=== PATIENT | female | born 1960 | race American Indian/Alaskan Native ===

== ENCOUNTER 2017-01-26 15:16 | Observation (INO) | payer OTHER ==
--- NOTE | 2017-01-26 15:58 | ED PDOC ---
Arrival/HPI - General Chief Complaint: Chest Pain Time Seen by Provider: 01/26/17 15:22 Historian: Patient - History of Present Illness Narrative History of Present Illness (Text): 01/26/17 15:53 A 56 year old female presents to the emergency department complaining of intermittent midsternal chest pain for 1 week. Patient unable to describe her pain and denies any radiation. Patient notes mild facial pain but denies any fever, chills, nausea, vomiting, abdominal pain, urinary symptoms, shortness of breath, cough or any other complaints. Patient reports she had an echo and stress test done " awhile ago" which showed normal results. PMD: Dr. Peña 01/26/17 17:29 Time/Duration: 1 week Symptom Course: Intermittent Quality: Unable to Describe Context: Home Past Medical History - Provider Review Nursing Documentation Reviewed: Yes - Infectious Disease Hx of Infectious Diseases: None - Tetanus Immunization Tetanus Immunization: Unknown - Past Medical History Past Medical History: Non-Contributing - Cardiac Hx Cardiac Disorders: Yes Hx Congestive Heart Failure: Yes Hx Hypertension: Yes - Pulmonary Hx Respiratory Disorders: No - Neurological Hx Neurological Disorder: No - HEENT Hx HEENT Disorder: No - Renal Hx Renal Disorder: No - Endocrine/Metabolic Hx Endocrine Disorders: Yes Hx Diabetes Mellitus Type 2: Yes - Hematological/Oncological Hx Blood Disorders: No - Integumentary Hx Dermatological Disorder: No - Musculoskeletal/Rheumatological Hx Musculoskeletal Disorders: Yes Hx Arthritis: Yes - Gastrointestinal Hx Gastrointestinal Disorders: No - Genitourinary/Gynecological Hx Genitourinary Disorders: No - Psychiatric Hx Psychophysiologic Disorder: No Hx Substance Use: No - Anesthesia Hx Anesthesia: No Hx Anesthesia Reactions: No Hx Malignant Hyperthermia: No Family/Social History - Physician Review Nursing Documentation Reviewed: Yes Family/Social History: No Known Family HX Smoking Status: Never Smoked Hx Alcohol Use: No Hx Substance Use: No Allergies/Home Meds Allergies/Adverse Reactions: Allergies amoxicillin Adverse Reaction (Verified 01/26/17 18:33) SWELLING Periorbital edema penicillin G Adverse Reaction (Verified 01/26/17 18:33) ANAPHYLAXIS Home Medications: Home Meds Medication Instructions Recorded Confirmed Aspirin [Ecotrin] 81 mg PO DAILY 05/20/16 01/26/17 Furosemide [Lasix] 40 mg PO BID 05/20/16 01/26/17 Losartan [Cozaar] 100 mg PO DAILY 05/20/16 01/26/17 Spironolactone [Aldactone] 25 mg PO DAILY 05/20/16 01/26/17 metFORMIN [glucOPHAGE] 500 mg PO BID 05/20/16 01/26/17 Review of Systems - Physician Review All systems were reviewed & negative as marked: Yes - Review of Systems Constitutional: absent: Fevers, Night Sweats Respiratory: absent: SOB, Cough Cardiovascular: Chest Pain Gastrointestinal: absent: Abdominal Pain, Nausea, Vomiting Genitourinary Female: absent: Dysuria, Frequency, Hematuria, Urine Output Changes Musculoskeletal: Other (facial pain) Physical Exam Vital Signs Reviewed: Yes Vital Signs Temp Pulse Resp BP Pulse Ox 01/26/17 18:31 62 130/42 L 01/26/17 16:41 68 18 114/58 L 98 01/26/17 15:19 98.2 F 73 18 112/55 L 99 Temperature: Afebrile Blood Pressure: Hypotensive Pulse: Regular Respiratory Rate: Normal Appearance: Positive for: Well-Appearing, Non-Toxic, Comfortable Pain Distress: None Mental Status: Positive for: Alert and Oriented X 3 Finger Stick Blood Glucose: 177 - Systems Exam Head: Present: Atraumatic, Normocephalic Pupils: Present: PERRL Extroacular Muscles: Present: EOMI Conjunctiva: Present: Normal Mouth: Present: Moist Mucous Membranes Neck: Present: Normal Range of Motion Respiratory/Chest: Present: Clear to Auscultation, Good Air Exchange. No: Respiratory Distress, Accessory Muscle Use Cardiovascular: Present: Regular Rate and Rhythm, Normal S1, S2. No: Murmurs Abdomen: Present: Normal Bowel Sounds. No: Tenderness, Distention, Peritoneal Signs Back: Present: Normal Inspection Upper Extremity: Present: Normal Inspection. No: Cyanosis, Edema Lower Extremity: Present: Normal Inspection. No: Edema Neurological: Present: GCS=15, CN II-XII Intact, Speech Normal Skin: Present: Warm, Dry, Normal Color. No: Rashes Psychiatric: Present: Alert, Oriented x 3, Normal Insight, Normal Concentration Medical Decision Making ED Course and Treatment: 01/26/17 15:53 Impression: A 56 year old female with intermittent midsternal chest pain. Patient notes mild facial pain. Plan: -- Chest xray -- EKG -- Labs -- Urinalysis -- Aspirin -- Reassess and disposition Progress Notes: Report Date : 01/26/2017 16:31:03 Procedure: Chest xray Dictator : Alli Mcqueen MD IMPRESSION: Mild vascular congestion - Lab Interpretations Lab Results: 01/26/17 15:10 01/26/17 15:10 Lab Results 01/26/17 15:10: TSH 3rd Generation 3.17 01/26/17 15:10: NT-Pro-B Natriuret Pep 59.0, Triglycerides 259 H, Cholesterol 287 H, LDL Cholesterol Direct 198 H, HDL Cholesterol 30 01/26/17 15:10: Sodium 139, Potassium 4.1, Chloride 100, Carbon Dioxide 28, Anion Gap 15, BUN 19, Creatinine 1.2, Est GFR ( Amer) 56, Est GFR (Non- Af Amer) 46, Random Glucose 167 H, Calcium 10.1, Magnesium 1.8, Total Bilirubin 0.7, AST 31, ALT 24, Alkaline Phosphatase 151 H, Lactate Dehydrogenase 587, Total Creatine Kinase 150, Troponin I < 0.01, Total Protein 7.8, Albumin 4.1, Globulin 3.7, Albumin/Globulin Ratio 1.1 01/26/17 15:10: PT 11.1, INR 1.03, APTT 28.7 01/26/17 15:10: WBC 7.4, RBC 4.26, Hgb 12.2, Hct 37.1, MCV 87.1, MCH 28.6, MCHC 32.9, RDW 14.1, Plt Count 228, MPV 10.1, Gran % 76.7 H, Lymph % (Auto) 15.6 L, Haywood % (Auto) 6.4 H, Eos % (Auto) 1.2 L, Baso % (Auto) 0.1, Gran # 5.63, Lymph # 1.2, Haywood # 0.5, Eos # 0.1, Baso # 0.01 I have reviewed the lab results: Yes - RAD Interpretation Radiology Orders: 01/26/17 15:51 CHEST PORTABLE [RAD] Stat - Medication Orders Current Medication Orders: Allopurinol (Zyloprim) 200 mg PO DAILY [facility] Aspirin (Ecotrin) 81 mg PO DAILY [facility] Colchicine (Colocrys) 0.6 mg PO DAILY [facility] Enoxaparin Sodium (Lovenox) 40 mg SC DAILY [facility] PRN Reason: Protocol Furosemide (Lasix) 40 mg PO BID [facility] Last Admin: 01/26/17 18:31 Dose: 40 mg Insulin Human Regular (Humulin R Low) 0 units SC ACHS [facility] PRN Reason: Protocol Losartan Potassium (Cozaar) 100 mg PO DAILY [facility] Metoprolol Tartrate (Lopressor) 25 mg PO BID [facility] Last Admin: 01/26/17 18:31 Dose: 25 mg Pantoprazole Sodium (Protonix Ec Tab) 40 mg PO 0600 [facility] Spironolactone (Aldactone) 25 mg PO DAILY [facility] Discontinued Medications Aspirin (Aspirin) 325 mg PO STAT STA Stop: 01/26/17 15:51 Last Admin: 01/26/17 16:11 Dose: 325 mg - Scribe Statement The provider has reviewed the documentation as recorded by the Ericka Evans Provider Scribe Attestation: All medical record entries made by the Scribe were at my direction and personally dictated by me. I have reviewed the chart and agree that the record accurately reflects my personal performance of the history, physical exam, medical decision making, and the department course for this patient. I have also personally directed, reviewed, and agree with the discharge instructions and disposition. Disposition/Present on Arrival - Present on Arrival Any Indicators Present on Arrival: No History of DVT/PE: No History of Uncontrolled Diabetes: Yes Urinary Catheter: No History of Decub. Ulcer: No History Surgical Site Infection Following: None - Disposition Have Diagnosis and Disposition been Completed?: Yes Diagnosis: Chest pain Disposition: HOSPITALIZED Disposition Time: 17:29 Patient Problems: Current Active Problems Problem Status Onset Chest pain Acute Condition: STABLE
[2017-01-26 16:18] LABS: BASO # 0.01 K/mm3 (0.0-2.0); BASO % 0.1 % (0.0-3.0); EOS # 0.1 (0.0-0.7); EOS % 1.2 % (1.5-5.0); GRAN # 5.63 (1.4-6.5); GRAN % 76.7 % (50.0-68.0); HEMATOCRIT 37.1 % (36.0-48.0); LYMPH # 1.2 (1.2-3.4); LYMPH % 15.6 % (22.0-35.0); MEAN CELL VOLUME 87.1 fl (80.0-105.0); MEAN CORPUSCULAR HEMOGLOBIN 28.6 pg (25.0-35.0); MEAN CORPUSCULAR HGB CONC 32.9 g/dl (31.0-37.0); MEAN PLATELET VOLUME 10.1 fl (7.0-11.0); MONO # 0.5 (0.1-0.6); MONO % 6.4 % (1.0-6.0); RED CELL DISTRIBUTION WIDTH 14.1 % (11.5-14.5); WHITE BLOOD COUNT 7.4 10^3/ul (4.5-11.0)
[2017-01-26 16:26] LABS: INR 1.03 (0.93-1.08); PARTIAL THROMBOPLASTIN TIME 28.7 Seconds (23.7-30.8)
[2017-01-26 16:28] LABS: ALB/GLOB RATIO 1.1 (1.1-1.8); ALKALINE PHOSPHATASE 151 U/L (38-133); ALT/SGPT 24 U/L (7-56); AST/SGOT 31 U/L (15-39); BILIRUBIN,TOTAL 0.7 mg/dL (0.2-1.3); BLOOD UREA NITROGEN 19 mg/dL (7-21); CALCIUM 10.1 mg/dL (8.4-10.5); CARBON DIOXIDE 28 mmol/L (21-33); CHLORIDE 100 mmol/L (98-107); GFR AFRICAN-AMERICAN 56; GLUCOSE,RANDOM 167 mg/dL (70-110); MAGNESIUM 1.8 mg/dL (1.7-2.2); POTASSIUM 4.1 mmol/L (3.6-5.0); SODIUM 139 mmol/L (132-148); TOTAL PROTEIN 7.8 g/dL (5.8-8.3)
--- NOTE | 2017-01-26 16:32 | RAD ---
HISTORY: cp COMPARISON: 06/04/2016 FINDINGS: LUNGS: No active pulmonary disease. PLEURA: No significant pleural effusion identified, no pneumothorax apparent. CARDIOVASCULAR: Mild vascular congestion. The heart is normal in size OSSEOUS STRUCTURES: No significant abnormalities. VISUALIZED UPPER ABDOMEN: Normal. OTHER FINDINGS: None. IMPRESSION: Mild vascular congestion
[2017-01-26 16:40] LABS: TROPONIN I < 0.01 ng/mL
[2017-01-26 18:34] LABS: URINE BILIRUBIN NEGATIVE (NEGATIVE); URINE BLOOD NEGATIVE (NEGATIVE); URINE GLUCOSE (UA) NEGATIVE (NEGATIVE); URINE KETONE NEGATIVE (NEGATIVE); URINE LEUKOCYTE ESTERASE NEGATIVE Leu/uL (NEGATIVE); URINE PROTEIN NEGATIVE mg/dL (<30 mg/dL); URINE UROBILINOGEN 0.2 E.U./dL (<1 E.U./dL)
[2017-01-26 18:37] LABS: URINE APPEARANCE CLEAR (CLEAR); URINE COLOR STRAW (YELLOW)
--- NOTE | 2017-01-26 18:40 | CP.PCM.HP ---
History of Present Illness - History of Present Illness History of Present Illness: CC: I'm having chest pain HPI: Patient is a 56 year old female with PMHx of HTN, DM, Diastolic CHF presents to the ED for intermittent chest pain x 1 week. Patient reports that chest pain has progressively gotten worse which prompted the ED visit. States that she was laying in bed this morning when the pain started. It is substernally located, unable to describe how it feels. Not sure how long the episodes last. Pain radiates to her face bilaterally. Denies any exacerbating or alleviating factors. Chest pain is accompanied by occasional shortness of breath and belching. Patient ambulates with a cane and reports that her physical activity is limited but changed from baseline. Patient is compliant with medications. Denies headaches, dizziness, nausea, vomiting, palpitations, abdominal pain, urinary symptoms, changes in bowel habits. Currently denies chest pain. PMD: Dr Peña Cardio: Dr Pearce Allergies: Amoxicillin/PCN Medications: Aldactone 25mg daily, Lopressor 25mg BID, Lasix 40mg BID, Colchine 0.6mg QD, Allopurinol 200mg daily, Metformin 500mg BID, Losartan 100mg daily, ASA 81 mg Medical Hx: Diastolic CHF (EF 55% 02/2016), HTN, DM, gout, venous insufficiency Social Hx: Denies alcohol, drugs, tobacco use; currently unemployed; ambulates with a cane Surgical Hx: Denies Family Hx: Mother (DM, HTN, CHF) Present on Admission - Present on Admission Any Indicators Present on Admission: No History of DVT/PE: No History of Uncontrolled Diabetes: No Urinary Catheter: No Decubitus Ulcer Present: No Review of Systems - Review of Systems All systems: reviewed and no additional remarkable complaints except - Constitutional Constitutional: absent: Chills, Fever, Headache, Weakness - EENT Eyes: absent: Blurred Vision, Change in Vision Ears: absent: Decreased Hearing - Cardiovascular Cardiovascular: Chest Pain, Dyspnea, Leg Edema. absent: Lightheadedness, Palpitations, Paroxysmal Nocturnal Dyspnea - Respiratory Respiratory: Dyspnea, Dyspnea on Exertion. absent: Cough, Wheezing, Chest Congestion - Gastrointestinal Gastrointestinal: Belching. absent: Abdominal Pain, Constipation, Diarrhea, Nausea, Vomiting - Genitourinary Genitourinary: absent: Difficulty Urinating, Dysuria, Urinary Incontinence, Urinary Frequency - Musculoskeletal Musculoskeletal: Back Pain. absent: Numbness, Tingling - Neurological Neurological: absent: Dizziness, Numbness, Focal Weakness, Headaches, Tingling, Weakness - Psychiatric Psychiatric: absent: Anxiety, Depression Past Patient History - Infectious Disease Hx of Infectious Diseases: None - Tetanus Immunizations Tetanus Immunization: Unknown - Past Social History Smoking Status: Never Smoked - CARDIAC Hx Cardiac Disorders: Yes Hx Congestive Heart Failure: Yes Hx Hypertension: Yes - PULMONARY Hx Respiratory Disorders: No - NEUROLOGICAL Hx Neurological Disorder: No - HEENT Hx HEENT Problems: No - RENAL Hx Chronic Kidney Disease: No - ENDOCRINE/METABOLIC Hx Endocrine Disorders: Yes Hx Diabetes Mellitus Type 2: Yes - HEMATOLOGICAL/ONCOLOGICAL Hx Blood Disorders: No - INTEGUMENTARY Hx Dermatological Problems: No - MUSCULOSKELETAL/RHEUMATOLOGICAL Hx Musculoskeletal Disorders: Yes Hx Arthritis: Yes - GASTROINTESTINAL Hx Gastrointestinal Disorders: No - GENITOURINARY/GYNECOLOGICAL Hx Genitourinary Disorders: No - PSYCHIATRIC Hx Psychophysiologic Disorder: No Hx Substance Use: No - SURGICAL HISTORY Hx Surgeries: No - ANESTHESIA Hx Anesthesia: No Hx Anesthesia Reactions: No Hx Malignant Hyperthermia: No Meds Allergies/Adverse Reactions: Allergies Allergy/AdvReac Type Severity Reaction Status Date / Time amoxicillin AdvReac SWELLING Verified 01/26/17 18:33 penicillin G AdvReac ANAPHYLAXIS Verified 01/26/17 18:33 Physical Exam - Constitutional Appears: Non-toxic, No Acute Distress, Unkempt - Head Exam Head Exam: ATRAUMATIC, NORMAL INSPECTION - Eye Exam Eye Exam: EOMI, Normal appearance Pupil Exam: NORMAL ACCOMODATION - ENT Exam ENT Exam: Mucous Membranes Moist - Neck Exam Neck exam: Positive for: Full Rom - Respiratory Exam Respiratory Exam: Decreased Breath Sounds, NORMAL BREATHING PATTERN. absent: Rales, Rhonchi, Wheezes, Respiratory Distress - Cardiovascular Exam Cardiovascular Exam: REGULAR RHYTHM, +S1, +S2. absent: Diastolic murmur, Systolic Murmur - GI/Abdominal Exam GI & Abdominal Exam: Normal Bowel Sounds, Soft. absent: Distended, Guarding, Rebound, Rigid - Rectal Exam Rectal Exam: Deferred - Extremities Exam Additional comments: +3 LE pitting edema bilaterally - Back Exam Back exam: NORMAL INSPECTION - Neurological Exam Neurological exam: Alert, Oriented x3 - Psychiatric Exam Psychiatric exam: Normal Affect, Normal Mood - Skin Skin Exam: Normal Color, Warm Results - Vital Signs Recent Vital Signs: Last Vital Signs Temp 98.2 F 01/26/17 15:19 Pulse 62 01/26/17 18:31 Resp 18 01/26/17 16:41 BP 130/42 L 01/26/17 18:31 Pulse Ox 98 01/26/17 16:41 - Labs Result Diagrams: 01/26/17 15:10 01/26/17 15:10 Assessment & Plan - Assessment and Plan (Free Text) Assessment: 56 yo female with pmhx of HTN, DM, Diastolic CHF (EF 54%), gout presents to the ED with intermittent substernal chest pain x 1 week. EKG in the ED showing NSR. Trops negative x 1. CXR mild vascular congestion. Plan: 1. Chest Pain r/o ACS -Stable, afebrile -Admit and monitor on telemetry -EKG on admission: NSR -Received ASA 325mg in the ED -Troponins negative x 1, trend trops -Continue ASA 81mg daily -F/U BNP, Lipid panel, TSH, am Labs -Cardiology consulted, f/u recommendations 2. Diastolic Congestive Heart Failure -EF 54% in 02/2016 -F/U BNP -Continue Lasix 40mg BID, Aldactone 25mg daily -May consider repeat echo 3. Hx of Hypertension -Continue Losartan 100mg daily -Lopressor 25mg BID 4. Diabetes Mellitus, Type 2 -On Metformin 500mg BID at home -Will start low dose ISS -Accuchecks ACHS -F/U HgA1C 5. Hx of Gout -Continue Colchicine, Allopurinol 6. GI/DVT ppx -Protonix 40mg daily -Lovenox 40mg daily
[2017-01-26 21:51] VITALS: BMI 54.9
[2017-01-26] MEDS ORDERED: Pneumococcal 23-Valent Vaccine IM ONE (21:51)
[2017-01-26] MEDS: Insulin Reg-LOW-Coverage SC SCH (22:57)
[2017-01-27 03:24] LABS: BASO # 0.01 K/mm3 (0.0-2.0); BASO % 0.1 % (0.0-3.0); EOS # 0.1 (0.0-0.7); EOS % 1.6 % (1.5-5.0); GRAN # 5.25 (1.4-6.5); GRAN % 70.8 % (50.0-68.0); HEMATOCRIT 35.9 % (36.0-48.0); LYMPH # 1.4 (1.2-3.4); LYMPH % 19.3 % (22.0-35.0); MEAN CELL VOLUME 86.9 fl (80.0-105.0); MEAN CORPUSCULAR HEMOGLOBIN 27.6 pg (25.0-35.0); MEAN CORPUSCULAR HGB CONC 31.8 g/dl (31.0-37.0); MEAN PLATELET VOLUME 9.3 fl (7.0-11.0); MONO # 0.6 (0.1-0.6); MONO % 8.2 % (1.0-6.0); WHITE BLOOD COUNT 7.4 10^3/ul (4.5-11.0)
[2017-01-27 03:39] LABS: BILIRUBIN,TOTAL 0.7 mg/dL (0.2-1.3); POTASSIUM 4.1 mmol/L (3.6-5.0); TOTAL PROTEIN 7.3 g/dL (5.8-8.3)
[2017-01-27 03:47] LABS: TROPONIN I 0.01 ng/mL
[2017-01-27] MEDS: Pantoprazole 40 mg EC Tab PO SCH (05:09)
[2017-01-27 06:35] VITALS: RESP 20
[2017-01-27] MEDS: Insulin Reg-LOW-Coverage SC SCH ×4 (08:10→22:18)
[2017-01-27] MEDS: Enoxaparin 40 mg Syringe SC SCH (11:18)
--- NOTE | 2017-01-27 16:26 | CON ---
DATE: 01/27/2017 CARDIOLOGY CONSULTATION HISTORY: The patient is a 56-year-old woman who presents with epigastric discomfort. The patient has had previous episodes in the past. She underwent a stress test at [facility] after seeing a stapler hand in [place]. Her tests were all normal. The patient had a recent echocardiogram on 02/2016 that shows normal LV function. Her cardiac risk factors includes hypertension, diabetes mellitus as well as morbid obesity. The patient walks with a cane secondary to arthritis of the knees. Her past medical history is free of her previous myocardial infarction and no previous cardiac history. SOCIAL HISTORY: Denies smoking. REVIEW OF SYSTEMS: A 14-point review of systems was reviewed in detail. No additional cardiac symptomatology is noted. PHYSICAL EXAMINATION: VITAL SIGNS: Blood pressure is 126/45, heart rate in the 80s. NECK: Negative JVD. LUNGS: Without rales. HEART: S1, S2. EXTREMITIES: Without edema. LABORATORY DATA: Hemoglobin is 11.4. Chemistries: Troponins are negative x2. The glucose varies from 134-143. EKG shows normal sinus rhythm with nonspecific ST-T changes. IMPRESSION: 1. No evidence for acute coronary syndrome. 2. Epigastric discomfort. 3. Diabetes mellitus. 4. Hypertension. 5. Morbid obesity. PLAN: Given these findings, I agree with a trial of Protonix. From a cardiac perspective, the patient should have a repeat stress test. I have offered it to her to do at locally versus to do it back where she lives. The patient is agreeable for an outpatient stress test later on this week. We will discontinue telemetry. Will continue Protonix. Checo Koroma MD
--- NOTE | 2017-01-27 19:35 | CARD ---
APPROVED REPORT EKG Measurement Heart [id number] [place] [id number] <Conclusion> Normal sinus rhythm Normal ECG
--- NOTE | 2017-01-27 22:26 | CP.PCM.PN ---
<SaurabhAncelmo - Last Filed: 01/27/17 22:21> Subjective - Date & Time of Evaluation Date of Evaluation: 01/27/17 Time of Evaluation: 06:55 - Subjective Subjective: Pt s/e bedside. Pt resting comfortably in bed. Chest pain in epigastric region is reproducible. Pt denies sob, f, ch, n/v/d. Patient does not need oxygen therapy right now. B/l LE edema, but no sob. No further complaints. Objective - Vital Signs/Intake and Output Vital Signs (last 24 hours): Temp Pulse Resp BP Pulse Ox 98.1 F 72 20 143/66 98 01/27/17 17:41 01/27/17 18:22 01/27/17 17:41 01/27/17 18:23 01/26/17 18:55 Intake and Output: 01/27/17 01/28/17 18:59 06:59 Intake Total 300 Balance 300 - Medications Medications: Current Medications Allopurinol (Zyloprim) 200 mg PO DAILY [facility] Last Admin: 01/27/17 11:16 Dose: 200 mg Aspirin (Ecotrin) 81 mg PO DAILY [facility] Last Admin: 01/27/17 11:18 Dose: 81 mg Atorvastatin Calcium (Lipitor) 20 mg PO DIN [facility] Last Admin: 01/27/17 18:23 Dose: 20 mg Colchicine (Colocrys) 0.6 mg PO DAILY [facility] Last Admin: 01/27/17 11:18 Dose: 0.6 mg Enoxaparin Sodium (Lovenox) 40 mg SC DAILY [facility] PRN Reason: Protocol Last Admin: 01/27/17 11:18 Dose: 40 mg Furosemide (Lasix) 40 mg PO BID [facility] Last Admin: 01/27/17 18:23 Dose: 40 mg Insulin Human Regular (Humulin R Low) [address] [facility] PRN Reason: Protocol Last Admin: 01/27/17 22:18 Dose: Not Given Losartan Potassium (Cozaar) 100 mg PO DAILY [facility] Last Admin: 01/27/17 11:16 Dose: 100 mg Metoprolol Tartrate (Lopressor) 25 mg PO BID [facility] Last Admin: 01/27/17 18:22 Dose: 25 mg Pantoprazole Sodium (Protonix Ec Tab) 40 mg PO 0600 [facility] Last Admin: 01/27/17 05:09 Dose: 40 mg Spironolactone (Aldactone) 25 mg PO DAILY [facility] Last Admin: 01/27/17 11:18 Dose: 25 mg - Labs Labs: 01/27/17 03:11 01/27/17 03:11 PT 11.1 Seconds (9.9-11.8) 01/26/17 15:10 INR 1.03 (0.93-1.08) 01/26/17 15:10 APTT 28.7 Seconds (23.7-30.8) 01/26/17 15:10 - Additional Findings Additional findings: VS as below Constitutional: morbidly obese AA female; a&o x 4, nad Head and Neck: neck supple, no jvd, trachea midline, carotid midline, no cervical/head mass Eyes: corey, nonicteric sclera, eom intact ENT: auditory acuity grossly intact, throat not congested, no nasal deformity Cardio: +Reproducible substernal pain; rrr, no m/r/g, no carotid bruit, nml s1, s2 Pulm: no rrw; no accessory muscle use, equal nml breath sounds bilaterally, ctab Abd: s/nt/nd, nbs x 4 q, no palpable masses Derm: no rashes, no ulcers, no lesions Extr: +Mild b/l LE edema; no cyanosis, no calf tenderness, no lesions, no varicosities Neuro: cn II-XII grossly intact, ue and le 5/5 muscle strength bilaterally, no los ue, le bilaterally and core Assessment and Plan - Assessment and Plan (Free Text) Assessment: 56 yo female with pmhx of HTN, DM, Diastolic CHF (EF 54%), gout presents to the ED with intermittent substernal chest pain x 1 week. EKG in the ED showing NSR. Trops negative x 1. CXR mild vascular congestion. Plan: 1. Chest Pain r/o ACS - Stable, afebrile - Admit and monitor on telemetry - EKG on admission: NSR - Received ASA 325mg in the ED - Troponins negative x 3, EKG neg X 3 - Continue ASA 81mg daily - F/U BNP, Lipid panel, TSH, am Labs - Cardiology consulted: Dr. Koroma - No further inpatient cardiac w/u at this time - Patient needs o/p stress test later this week - already amenable to doing with Dr. Koroma - Will start a trial of protonix 2. Diastolic Congestive Heart Failure - EF 54% in 02/2016 - BNP: not elevated (59) - Continue Lasix 40mg BID, Aldactone 25mg daily - No need for an inpatient ECHO at this time. 3. Hx of Hypertension - Continue Losartan 100mg daily - Lopressor 25mg BID 4. Diabetes Mellitus, Type 2 - On Metformin 500mg BID at home - Will start low dose ISS - Accuchecks ACHS - F/U HgA1C 5. Morbid Obesity - Advise patient on proper nutrition - Advise patient on exercise regimens 6. Hx of Gout - Continue Colchicine, Allopurinol 7. GI/DVT ppx - Protonix 40mg daily - Lovenox 40mg daily <Robson Molina - Last Filed: 02/12/17 11:50> Objective - Vital Signs/Intake and Output Vital Signs (last 24 hours): Temp Pulse Resp BP Pulse Ox 98 F 70 20 132/51 L 97 01/28/17 06:00 01/28/17 09:34 01/28/17 06:00 01/28/17 09:35 01/28/17 06:00 - Labs Labs: 01/28/17 08:09 01/28/17 08:09 PT 11.1 Seconds (9.9-11.8) 01/26/17 15:10 INR 1.03 (0.93-1.08) 01/26/17 15:10 APTT 28.7 Seconds (23.7-30.8) 01/26/17 15:10 Attending/Attestation - Attestation I have personally seen and examined this patient.: Yes I have fully participated in the care of the patient.: Yes I have reviewed all pertinent clinical information, including history, physical exam and plan: Yes Notes (Text): 02/12/17 11:50 Medical record note made by the resident after discussion with my direction and input after the patient was personally seen by me. I have reviewed the chart and agree that the record accurately reflects my personal performance of the history, physical, decision making, and plan for the patient.
[2017-01-28] MEDS: Pantoprazole 40 mg EC Tab PO SCH (05:46)
[2017-01-28 06:09] VITALS: TEMP 98; O2SAT 97
[2017-01-28] MEDS: Insulin Reg-LOW-Coverage SC SCH ×2 (07:30→12:43)
[2017-01-28 08:21] LABS: BASO # 0.01 K/mm3 (0.0-2.0); BASO % 0.1 % (0.0-3.0); EOS # 0.1 (0.0-0.7); EOS % 1.6 % (1.5-5.0); GRAN # 4.55 (1.4-6.5); GRAN % 68.2 % (50.0-68.0); HEMATOCRIT 35.3 % (36.0-48.0); LYMPH # 1.4 (1.2-3.4); LYMPH % 21.1 % (22.0-35.0); MEAN CELL VOLUME 86.5 fl (80.0-105.0); MEAN CORPUSCULAR HEMOGLOBIN 27.7 pg (25.0-35.0); MEAN PLATELET VOLUME 9.4 fl (7.0-11.0); MONO # 0.6 (0.1-0.6); RED CELL DISTRIBUTION WIDTH 13.9 % (11.5-14.5); WHITE BLOOD COUNT 6.7 10^3/ul (4.5-11.0)
[2017-01-28 08:31] LABS: ALB/GLOB RATIO 1.2 (1.1-1.8); BILIRUBIN,TOTAL 0.7 mg/dL (0.2-1.3); CALCIUM 9.5 mg/dL (8.4-10.5); POTASSIUM 3.9 mmol/L (3.6-5.0); TOTAL PROTEIN 7.2 g/dL (5.8-8.3)
[2017-01-28] MEDS: Enoxaparin 40 mg Syringe SC SCH (09:36)
[2017-01-28 09:37] VITALS: BP 132/51; PULSE 70
--- NOTE | 2017-01-28 14:53 | CP.PCM.PN ---
<SaurabhAncelmo - Last Filed: 01/29/17 00:24> Subjective - Date & Time of Evaluation Date of Evaluation: 01/28/17 Time of Evaluation: 09:15 - Subjective Subjective: PLEASE DISREGARD THIS NOTE Objective - Vital Signs/Intake and Output Vital Signs (last 24 hours): Temp Pulse Resp BP Pulse Ox 98 F 70 20 132/51 L 97 01/28/17 06:00 01/28/17 09:34 01/28/17 06:00 01/28/17 09:35 01/28/17 06:00 Intake and Output: 01/28/17 01/28/17 06:59 18:59 Intake Total 240 Balance 240 - Medications Medications: Current Medications Allopurinol (Zyloprim) 200 mg PO DAILY [facility] Last Admin: 01/28/17 09:34 Dose: 200 mg Aspirin (Ecotrin) 81 mg PO DAILY [facility] Last Admin: 01/28/17 09:35 Dose: 81 mg Atorvastatin Calcium (Lipitor) 20 mg PO DIN [facility] Last Admin: 01/27/17 18:23 Dose: 20 mg Colchicine (Colocrys) 0.6 mg PO DAILY [facility] Last Admin: 01/28/17 09:35 Dose: 0.6 mg Enoxaparin Sodium (Lovenox) 40 mg SC DAILY [facility] PRN Reason: Protocol Last Admin: 01/28/17 09:36 Dose: 40 mg Furosemide (Lasix) 40 mg PO BID [facility] Last Admin: 01/28/17 09:35 Dose: 40 mg Insulin Human Regular (Humulin R Low) 0 units SC ACHS [facility] PRN Reason: Protocol Last Admin: 01/28/17 12:43 Dose: 1 units Losartan Potassium (Cozaar) 100 mg PO DAILY [facility] Last Admin: 01/28/17 09:35 Dose: 100 mg Metoprolol Tartrate (Lopressor) 25 mg PO BID [facility] Last Admin: 01/28/17 09:34 Dose: 25 mg Pantoprazole Sodium (Protonix Ec Tab) 40 mg PO 0600 [facility] Last Admin: 01/28/17 05:46 Dose: 40 mg Spironolactone (Aldactone) 25 mg PO DAILY [facility] Last Admin: 01/28/17 09:35 Dose: 25 mg - Labs Labs: 01/28/17 08:09 01/28/17 08:09 PT 11.1 Seconds (9.9-11.8) 01/26/17 15:10 INR 1.03 (0.93-1.08) 01/26/17 15:10 APTT 28.7 Seconds (23.7-30.8) 01/26/17 15:10 - Additional Findings Additional findings: VS as below Constitutional: morbidly obese AA female; a&o x 4, nad Head and Neck: neck supple, no jvd, trachea midline, carotid midline, no cervical/head mass Eyes: corey, nonicteric sclera, eom intact ENT: auditory acuity grossly intact, throat not congested, no nasal deformity Cardio: +Reproducible substernal pain; rrr, no m/r/g, no carotid bruit, nml s1, s2 Pulm: no rrw; no accessory muscle use, equal nml breath sounds bilaterally, ctab Abd: s/nt/nd, nbs x 4 q, no palpable masses Derm: no rashes, no ulcers, no lesions Extr: +Mild b/l LE edema; no cyanosis, no calf tenderness, no lesions, no varicosities Neuro: cn II-XII grossly intact, ue and le 5/5 muscle strength bilaterally, no los ue, le bilaterally and core <Robson Molina - Last Filed: 02/12/17 11:51> Objective - Vital Signs/Intake and Output Vital Signs (last 24 hours): Temp Pulse Resp BP Pulse Ox 98 F 70 20 132/51 L 97 01/28/17 06:00 01/28/17 09:34 01/28/17 06:00 01/28/17 09:35 01/28/17 06:00 - Labs Labs: 01/28/17 08:09 01/28/17 08:09 PT 11.1 Seconds (9.9-11.8) 01/26/17 15:10 INR 1.03 (0.93-1.08) 01/26/17 15:10 APTT 28.7 Seconds (23.7-30.8) 01/26/17 15:10 Attending/Attestation - Attestation I have personally seen and examined this patient.: Yes I have fully participated in the care of the patient.: Yes I have reviewed all pertinent clinical information, including history, physical exam and plan: Yes Notes (Text): 02/12/17 11:51 Medical record note made by the resident after discussion with my direction and input after the patient was personally seen by me. I have reviewed the chart and agree that the record accurately reflects my personal performance of the history, physical, decision making, and plan for the patient.
--- NOTE | 2017-01-28 15:16 | CP.PCM.DIS ---
Provider - Provider Date of Admission: 01/26/17 17:27 Attending physician: Robson Molina MD Primary care physician: NO PRIMARY CARE PROVIDER Consults: Dr. Koroma Time Spent in preparation of Discharge (in minutes): 45 Hospital Course - Lab Results Lab Results: Most Recent Lab Values WBC 6.7 10^3/ul (4.5-11.0) 01/28/17 08:09 RBC 4.08 10^6/uL (3.5-6.1) 01/28/17 08:09 Hgb 11.3 g/dL (12.0-16.0) L 01/28/17 08:09 Hct 35.3 % (36.0-48.0) L 01/28/17 08:09 MCV 86.5 fl (80.0-105.0) 01/28/17 08:09 MCH 27.7 pg (25.0-35.0) 01/28/17 08:09 MCHC 32.0 g/dl (31.0-37.0) 01/28/17 08:09 RDW 13.9 % (11.5-14.5) 01/28/17 08:09 Plt Count 192 10^3/uL (120.0-450.0) 01/28/17 08:09 MPV 9.4 fl (7.0-11.0) 01/28/17 08:09 Gran % 68.2 % (50.0-68.0) H 01/28/17 08:09 Lymph % (Auto) 21.1 % (22.0-35.0) L 01/28/17 08:09 [place] % (Auto) 9.0 % (1.0-6.0) H 01/28/17 08:09 Eos % (Auto) 1.6 % (1.5-5.0) 01/28/17 08:09 Baso % (Auto) 0.1 % (0.0-3.0) 01/28/17 08:09 Gran # 4.55 (1.4-6.5) 01/28/17 08:09 Lymph # 1.4 (1.2-3.4) 01/28/17 08:09 [place] # 0.6 (0.1-0.6) 01/28/17 08:09 Eos # 0.1 (0.0-0.7) 01/28/17 08:09 Baso # 0.01 K/mm3 (0.0-2.0) 01/28/17 08:09 PT 11.1 Seconds (9.9-11.8) 01/26/17 15:10 INR 1.03 (0.93-1.08) 01/26/17 15:10 APTT 28.7 Seconds (23.7-30.8) 01/26/17 15:10 Sodium 140 mmol/L (132-148) 01/28/17 08:09 Potassium 3.9 mmol/L (3.6-5.0) 01/28/17 08:09 Chloride 97 mmol/L (98-107) L 01/28/17 08:09 Carbon Dioxide 33 mmol/L (21-33) 01/28/17 08:09 Anion Gap 14 (10-20) 01/28/17 08:09 BUN 23 mg/dL (7-21) H 01/28/17 08:09 Creatinine 1.4 mg/dL (0.5-1.4) 01/28/17 08:09 Est GFR ( Amer) 47 01/28/17 08:09 Est GFR (Non-Af Amer) 39 01/28/17 08:09 POC Glucose (mg/dL) 136 mg/dL (65-110) H 01/28/17 07:21 Random Glucose 125 mg/dL (70-110) H 01/28/17 08:09 Hemoglobin A1c 7.1 % (4.2-6.5) H 01/26/17 15:10 Calcium 9.5 mg/dL (8.4-10.5) 01/28/17 08:09 Magnesium 1.8 mg/dL (1.7-2.2) 01/26/17 15:10 Total Bilirubin 0.7 mg/dL (0.2-1.3) 01/28/17 08:09 AST 31 U/L (15-39) 01/28/17 08:09 ALT 24 U/L (7-56) 01/28/17 08:09 Alkaline Phosphatase 129 U/L (38-133) 01/28/17 08:09 Lactate Dehydrogenase 587 U/L (333-699) 08/21/17 15:10 Total Creatine Kinase 150 U/L (35-230) 01/26/17 15:10 Troponin I 0.01 ng/mL 01/27/17 03:11 NT-Pro-B Natriuret Pep 59.0 pg/mL (0-450) 01/26/17 15:10 Total Protein 7.2 g/dL (5.8-8.3) 01/28/17 08:09 Albumin 3.9 g/dL (3.0-4.8) 01/28/17 08:09 Globulin 3.3 gm/dL 01/28/17 08:09 Albumin/Globulin Ratio 1.2 (1.1-1.8) 01/28/17 08:09 Triglycerides 259 mg/dL (35-160) H 01/26/17 15:10 Cholesterol 287 mg/dL (130-200) H 01/26/17 15:10 LDL Cholesterol Direct 198 mg/dL (0-129) H 01/26/17 15:10 HDL Cholesterol 30 mg/dL (29-60) 01/26/17 15:10 TSH 3rd Generation 3.17 mIU/mL (0.46-4.68) 01/26/17 15:10 Urine Color Straw (YELLOW) 01/26/17 17:40 Urine Appearance Clear (CLEAR) 01/26/17 17:40 Urine pH 7.0 (4.7-8.0) 01/26/17 17:40 Ur Specific [place] 1.010 (1.005-1.035) 01/26/17 17:40 Urine Protein Negative mg/dL (<30 mg/dL) 01/26/17 17:40 Urine Glucose (UA) Negative mg/dL (NEGATIVE) 01/26/17 17:40 Urine Ketones Negative mg/dL (NEGATIVE) 01/26/17 17:40 Urine Blood Negative (NEGATIVE) 01/26/17 17:40 Urine Nitrate Negative (NEGATIVE) 01/26/17 17:40 Urine Bilirubin Negative (NEGATIVE) 01/26/17 17:40 Urine Urobilinogen 0.2 E.U./dL (<1 E.U./dL) 01/26/17 17:40 Ur Leukocyte Esterase Negative [place]/uL (NEGATIVE) 01/26/17 17:40 Urine Opiates Screen Negative (NEGATIVE) 01/27/17 05:50 Urine Methadone Screen Negative (NEGATIVE) 01/27/17 05:50 Ur Barbiturates Screen Negative (NEGATIVE) 01/27/17 05:50 Ur Phencyclidine Scrn Negative (NEGATIVE) 01/27/17 05:50 Ur Amphetamines Screen Negative (NEGATIVE) 01/27/17 05:50 U Benzodiazepines Scrn Negative (NEGATIVE) 01/27/17 05:50 U Oth Cocaine Metabols Negative (NEGATIVE) 01/27/17 05:50 U Cannabinoids Screen Negative (NEGATIVE) 01/27/17 05:50 - Hospital Course Hospital Course: HPI: Patient is a 56 year old female with PMHx of HTN, DM, Diastolic CHF presented to the ED on 01/26/17 for intermittent chest pain x 1 week. Patient reports that chest pain has progressively gotten worse which prompted the ED visit. States that she was laying in bed in the morning when the pain started. It was substernally located, unable to describe how it feels. Not sure how long the episodes last. Pain radiated to her face bilaterally. Denied any exacerbating or alleviating factors. Chest pain was accompanied by occasional shortness of breath and belching. Patient ambulates with a cane and reports that her physical activity is limited but changed from baseline. Patient is compliant with medications. Denies headaches, dizziness, nausea, vomiting, palpitations, abdominal pain, urinary symptoms, changes in bowel habits. Currently denies chest pain. Pt was seen at bedside for the next two days. She was resting comfortably in bed. Chest pain in epigastric region was reproducible, and patient did not need oxygen therapy. B/l LE edema, but no sob. Pt denied sob, f, ch, n/v/d. The CP had not changed, and EKG + Tropes X 3 were negative. CXR did not show any acute process. Pt was seen by Dr. Koroma in patient, who set up an outpatient nuclear stress test for 01/29. Patient will follow up with Dr. Koroma and is aware of the plan. Patient was deemed stable for discharge. No further complaints. Discharge Exam - Head Exam Head Exam: ATRAUMATIC, NORMAL INSPECTION - Additional Findings Additional findings: VS as below Constitutional: morbidly obese AA female; a&o x 4, nad Head and Neck: neck supple, no jvd, trachea midline, carotid midline, no cervical/head mass Eyes: corey, nonicteric sclera, eom intact ENT: auditory acuity grossly intact, throat not congested, no nasal deformity Cardio: +Reproducible substernal pain; rrr, no m/r/g, no carotid bruit, nml s1, s2 Pulm: no rrw; no accessory muscle use, equal nml breath sounds bilaterally, ctab Abd: s/nt/nd, nbs x 4 q, no palpable masses Derm: no rashes, no ulcers, no lesions Extr: +Mild b/l LE edema; no cyanosis, no calf tenderness, no lesions, no varicosities Neuro: cn II-XII grossly intact, ue and le 5/5 muscle strength bilaterally, no los ue, le bilaterally and core Discharge Plan - Follow Up Plan Condition: STABLE Disposition: HOME/ ROUTINE Referrals: PCP,NO [Primary Care Provider] -
== END 2017-01-28 18:42 | disposition home or self-care (01) ==
LOC: ED 15:16 → ERH 17:27 → 2RNO 18:51
PROVIDERS: ADMIT Internal Medicine; ATTEND Internal Medicine
DX: R07.2 Precordial pain (principal); I11.0 Hypertensive heart disease with heart failure; I50.30 Unspecified diastolic (congestive) heart failure; E11.9 Type 2 diabetes mellitus without complications; M10.9 Gout, unspecified; M17.0 Bilateral primary osteoarthritis of knee; E66.01 Morbid (severe) obesity due to excess calories; Z68.43 Body mass index [BMI] 50.0-59.9, adult; Z79.82 Long term (current) use of aspirin; Z79.84 Long term (current) use of oral hypoglycemic drugs; Z88.0 Allergy status to penicillin
CPT/HCPCS: 36415; 71010; 80053; 80061; 80324; 80345; 80346; 80349; 80353; 80358; 80361; 81003; 82550; 82948; 83036; 83615; 83735; 83880; 83992; 84443; 84484; 85025; 85610; 85730; 93005; 99285; G0378; J1650